=== PATIENT | male | born 1985 | race Caucasian/White ===

== ENCOUNTER 2020-01-20 17:40 | Inpatient (IN) | payer SELFPAY ==
[~2020-01-20] VITALS: Ht 177.8 cm; Wt 75.0 kg
[2020-01-20 18:04] VITALS: BP 156/88; PULSE 122; TEMP 98.7
[2020-01-20 18:24] LABS: BASO % 0.2 % (0.0-2.0); EOS % 0.2 % (0-4.0); GRAN # 9.8 (1.4-6.5); GRAN % 74.3 % (42.2-75.2); HEMATOCRIT 49.6 % (42.0-52.0); HEMOGLOBIN 16.7 g/dl (13.5-18.0); LYMPH # 1.8 (1.2-3.4); LYMPH % 13.5 % (20.0-51.0); MEAN CELL VOLUME 88 fl (80.0-100.0); MEAN CORPUSCULAR HEMOGLOBIN 30 pg (27.0-31.0); MEAN CORPUSCULAR HGB CONC 34 g/dl (33.0-37.0); MEAN PLATELET VOLUME 11.7 fl (7.4-10.4); MONO # 1.5 (0.1-0.6); MONO % 11.6 % (1.7-9.3); PLATELET COUNT 261 K/mm3 (130-400); RED BLOOD COUNT 5.61 M/mm3 (4.20-5.60); REDCELL DISTRIBUTION WIDTH-CV 12.8 % (11.5-14.5)
[2020-01-20 18:33] LABS: ALBUMIN 4.6 gm/dL (3.5-5.0); BILIRUBIN,TOTAL 1.2 mg/dL (0.0-1.0); C-REACTIVE PROTEIN 0.6 mg/dL (0.0-0.9); CALCIUM 9.4 mg/dL (8.4-10.2); CREATININE, serum 1.04 (0.66-1.25); POTASSIUM 3.9 mmol/L (3.4-5.0); TOTAL PROTEIN 7.5 gm/dL (6.4-8.2)
--- NOTE | 2020-01-20 19:24 | NUR ---
Patient arrived to floor via EMS. Patient is alert and oriented, answers questions appropriately. GUS caballero connected to LIS. Patient reports pain is 10/10, administered PRN dilaudid per order, patient reported pain relief initially, then asked for PRN zofran. PRN zofran administred, patient then reports that his pain is 10/10 again and in the past he has had dilaudid with poor results. Patient requests morphine instead, supervisor kosher dietary service RN calling for orders. Patient denies further needs, call light within reach.
--- NOTE | 2020-01-20 19:39 | NUR ---
Patient rating pain 10/10 after adminstration of dilaudid. Patient reports given Morphine at [place] and helped. Spoke with Dr. Roberts. Okay to add order for morphine 2-4 mg Q2 hours PRN. Provided to patient. Will monitor.
[2020-01-20 20:00] VITALS: BP 148/72; PULSE 86; TEMP 97.7
--- NOTE | 2020-01-20 21:15 | NUR ---
Resting in bed. Assessment complete. Lungs clear. Heart sounds normal. Bowels active x4. Pulses present throughout. No edema noted. IV left AC infusing without complications. Reports 10/10 pains. Recently given morphine. Will continue to monitor.
[2020-01-20 22:53] VITALS: BP 157/78; PULSE 88; TEMP 98.8
--- NOTE | 2020-01-20 23:02 | NUR ---
patient reported cannot wait 2 hours between doses of morphine. Patient noted to be shaking in pain. Gave 4mg of morphine and spoke with Dr. Roberts. Per Dr. Roberts will place orders for TREE DOCTOR pump.
--- NOTE | 2020-01-20 23:30 | NUR ---
Patient reports pain has increased after recent dose of morphine. Continously repeating "something is not right." Spoke with Dr. Roberts, obtain CT ABD with contrast. Patient taken to CT.
[2020-01-20 23:50] VITALS: BP 160/89; PULSE 113
--- NOTE | 2020-01-20 23:54 | NUR ---
CAN CRIMPER started at this time.
[2020-01-21] VITALS (8 sets, daily range): BP systolic 136–160; BP diastolic 66–81; PULSE 89–122; TEMP 97.8–99.1
--- NOTE | 2020-01-21 00:48 | NUR ---
Patient reports feeling "good" with WREATH MACHINE OPERATOR pump. Dr Roberts reported no significant changes on CT. Continue to monitor. Patient denies needs. Call light in reach.
--- NOTE | 2020-01-21 02:37 | NUR ---
Resting in bed. Reports relief. VS stable. Will continue to monitor.
--- NOTE | 2020-01-21 04:15 | NUR ---
Resting in bed. Denies needs. Using GENERAL ADMINISTRATOR. Call light in reach.
--- NOTE | 2020-01-21 06:15 | NUR ---
Patient had CT during night. Started on GENERAL MACHINE OPERATOR pump. Patient pain controlled with GENERAL MACHINE OPERATOR pump. Resting in bed this AM. Call light in reach.
[2020-01-21 06:38] LABS: BASO % 0.3 % (0.0-2.0); EOS % 0.3 % (0-4.0); GRAN # 9.1 (1.4-6.5); GRAN % 75.8 % (42.2-75.2); HEMOGLOBIN 15.7 g/dl (13.5-18.0); LYMPH # 1.3 (1.2-3.4); LYMPH % 11.2 % (20.0-51.0); MEAN CELL VOLUME 91 fl (80.0-100.0); MEAN CORPUSCULAR HEMOGLOBIN 30 pg (27.0-31.0); MEAN CORPUSCULAR HGB CONC 33 g/dl (33.0-37.0); MEAN PLATELET VOLUME 11.6 fl (7.4-10.4); MONO # 1.4 (0.1-0.6); PLATELET COUNT 210 K/mm3 (130-400); RED BLOOD COUNT 5.19 M/mm3 (4.20-5.60); REDCELL DISTRIBUTION WIDTH-CV 12.7 % (11.5-14.5)
[2020-01-21 06:50] LABS: ALBUMIN 4.1 gm/dL (3.5-5.0); BILIRUBIN,TOTAL 1.2 mg/dL (0.0-1.0); CALCIUM 9.1 mg/dL (8.4-10.2); CREATININE, serum 1.02 (0.66-1.25); POTASSIUM 3.7 mmol/L (3.4-5.0); TOTAL PROTEIN 6.6 gm/dL (6.4-8.2)
--- NOTE | 2020-01-21 07:04 | NUR ---
Report given to HOSEA Sheikh
--- NOTE | 2020-01-21 08:00 | NUR ---
Patient resting in bed at this time, AUTO COLLISION REPAIR INSTRUCTOR in place per order. Patient reports that pain is currently well controlled, denies current nausea. NG remains to LIS, drainage is brown/green. Patient denies current needs, call light within reach.
--- NOTE | 2020-01-21 09:25 | NUR ---
Initial visit; Patient thanked General Repairer for looking in on him and offering encouragement and God's blessings.
--- NOTE | 2020-01-21 11:56 | NUR ---
Tank Maker Wood met with patient to discuss discharge planning. Patient lives in [place], however was visiting his parents who live in [place]. Patient states he went to [facility] in [place] and they did nothing for him there. Patient then presented to [facility] and he was transferred here. Patient states he has no primary care physician at this time and was not interested in having SW help assist with this. 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 Patient has had primary care in [facility], he just has not set anything up in [place] yet. Patient does not use any DME and is independent with [facility]. Patient is self pay and declined to complete an Financial Assistance Application with [employer]. Patient does not have Advance Directives at this time. Patient is not and has no children. Patient's legal next of kin would be his parents, David (ph#[phone]) and Mary Ellen. Patient states his parents will pick him up at time of discharge. SW will continue to follow.
--- NOTE | 2020-01-21 18:23 | NUR ---
Patient resting in bedside recliner at this time. NG to right nare, currently clamped so patient could ambulate, patient reports that nausea is controlled without suction. PRODUCTION TOOL ENGINEER still in place. Patient denies needs, call light within reach.
--- NOTE | 2020-01-21 19:55 | NUR ---
Resting in bed. Assessment complete. Lungs clear. Heart sounds normal. Bowels hypoactive. Pulses present throughout. No edema noted. IV left AC infusing without complications. BRILLIANDEER LOPPER present. Denies pain. NG tube rehooked to LIS. Patient recently ambulated in hallways. Denies other needs at this time. Call light in reach.
[2020-01-22] VITALS (12 sets, daily range): BP systolic 129–161; BP diastolic 66–89; PULSE 79–100; TEMP 98.6–99
--- NOTE | 2020-01-22 00:23 | NUR ---
Resting in bed. Denies needs. Call light in reach.
--- NOTE | 2020-01-22 02:03 | NUR ---
Resting in bed asleep. Call light in reach.
--- NOTE | 2020-01-22 04:18 | NUR ---
Patient requested NG tube to be clamped for ambulation. Clamped at this time. Denies other needs. Call light in reach.
--- NOTE | 2020-01-22 05:43 | NUR ---
Patient had NG tube to LIS during night. Clamped this AM for ambulation. Otherwise uneventful night. Resting in bed this AM. Call light in reach.
[2020-01-22 06:19] LABS: BASO % 0.4 % (0.0-2.0); EOS # 0.1 (0.0-0.7); EOS % 0.7 % (0-4.0); GRAN # 7.7 (1.4-6.5); GRAN % 75.3 % (42.2-75.2); HEMATOCRIT 44.2 % (42.0-52.0); HEMOGLOBIN 14.7 g/dl (13.5-18.0); MEAN CELL VOLUME 90 fl (80.0-100.0); MEAN CORPUSCULAR HEMOGLOBIN 30 pg (27.0-31.0); MEAN CORPUSCULAR HGB CONC 33 g/dl (33.0-37.0); MEAN PLATELET VOLUME 11.4 fl (7.4-10.4); MONO # 1.4 (0.1-0.6); MONO % 13.3 % (1.7-9.3); PLATELET COUNT 193 K/mm3 (130-400); RED BLOOD COUNT 4.89 M/mm3 (4.20-5.60); REDCELL DISTRIBUTION WIDTH-CV 12.6 % (11.5-14.5)
[2020-01-22 06:31] LABS: INR 1.3 (0.8-3.0); PROTHROMBIN TIME 14.8 SECONDS (9.7-12.8)
[2020-01-22 06:34] LABS: ALBUMIN 4.1 gm/dL (3.5-5.0); BILIRUBIN,TOTAL 2.8 mg/dL (0.0-1.0); CALCIUM 9.2 mg/dL (8.4-10.2); CREATININE, serum 1.03 (0.66-1.25); POTASSIUM 3.6 mmol/L (3.4-5.0); TOTAL PROTEIN 6.8 gm/dL (6.4-8.2)
--- NOTE | 2020-01-22 07:08 | NUR ---
Report given to HOSEA Chi
--- NOTE | 2020-01-22 16:23 | NUR ---
PT RETURNED TO ROOM AT 1615, DENIES PAIN, POST-OP VS SET UP AND PT MADE COMFORTABLE.
--- NOTE | 2020-01-22 19:26 | NUR ---
PT TOLERATING DINNER WELL. TRANSFERS FINE TO THE TOILET AFER SURGERY. PAIN UNDER CONTROL, LR RUNNING AT 100 MLS IN LEFT AC.
--- NOTE | 2020-01-22 21:30 | NUR ---
Pt. sitting up in bed at this time. Time. Pt. is A&OX3, assessment complete. IV to lt. ac patent, IV fluids infusing per orders. Abd. lap sites x3, well approximated. Pt. reports being able to tolerate clear liquids. Pt. denies pain or other needs, call light within reach.
[2020-01-23 00:09] VITALS: BP 155/71; PULSE 83; TEMP 98.8
[2020-01-23 04:08] VITALS: BP 139/87; PULSE 82; TEMP 98.5
[2020-01-23 06:55] LABS: BASO % 0.3 % (0.0-2.0); GRAN # 8.6 (1.4-6.5); GRAN % 79.7 % (42.2-75.2); HEMATOCRIT 45.6 % (42.0-52.0); HEMOGLOBIN 15.1 g/dl (13.5-18.0); LYMPH # 0.8 (1.2-3.4); LYMPH % 7.7 % (20.0-51.0); MEAN CELL VOLUME 90 fl (80.0-100.0); MEAN CORPUSCULAR HEMOGLOBIN 30 pg (27.0-31.0); MEAN CORPUSCULAR HGB CONC 33 g/dl (33.0-37.0); MEAN PLATELET VOLUME 11.2 fl (7.4-10.4); MONO # 1.3 (0.1-0.6); PLATELET COUNT 249 K/mm3 (130-400); RED BLOOD COUNT 5.05 M/mm3 (4.20-5.60); REDCELL DISTRIBUTION WIDTH-CV 12.2 % (11.5-14.5)
[2020-01-23 07:50] LABS: ALBUMIN 4.5 gm/dL (3.5-5.0); BILIRUBIN,TOTAL 1.3 mg/dL (0.0-1.0); CALCIUM 9.5 mg/dL (8.4-10.2); CREATININE, serum 1.08 (0.66-1.25); POTASSIUM 3.5 mmol/L (3.4-5.0); TOTAL PROTEIN 7.5 gm/dL (6.4-8.2)
[2020-01-23 07:59] VITALS: BP 135/68; PULSE 83; TEMP 98.9
--- NOTE | 2020-01-23 08:40 | NUR ---
PT INDEPENDENT IN ROOM. TOLERATING FULL LIQUIDS, BOWEL SOUNDS ACTIVE, PT REPORTS PASSING COLLEEN, NG TUBE DISCONTINUED,
[2020-01-23] MEDS ORDERED: MOTRIN 600600 MG/TAB PO (08:42)
[2020-01-23] MEDS ORDERED: ROXICODONE 55 MG/TAB PO (08:45)
[2020-01-23] MEDS ORDERED: NEURONTIN100 MG/CAP PO (08:45)
--- NOTE | 2020-01-23 10:30 | NUR ---
DISCHARGE INSTRUCTIONS REVIEWED WITH PT. QUESTIONS SOLICITED AND ANSWERED. PT TAKEN OUT BY WHEEL CHAIR AND STAFF.
--- NOTE | 2020-01-23 11:07 | NUR ---
Outside Residential Sales Professional met with patient as he will discharge home today. Patient states Dr. Roberts recommended he stay with his parents for a short time while he recovers. Patient states his mom will be here in ten minutes and plans to stay with them for a short while. Patient denies any questions or concerns at this time.
== END 2020-01-23 10:31 | disposition home or self-care (01) | DRG 337 ==
LOC: JCC 17:40
PROVIDERS: ADMIT Surgery
PROC: 0FN14ZZ Release Right Lobe Liver, Percutaneous Endoscopic Approach (ICD-10-PCS; 2020-01-22)
PROC: 0JN83ZZ Release Abdomen Subcutaneous Tissue and Fascia, Percutaneous Approach (ICD-10-PCS; 2020-01-22)
PROC: 0DNA4ZZ Release Jejunum, Percutaneous Endoscopic Approach (ICD-10-PCS; principal; 2020-01-22 13:00)
DX: K56.50 Intestinal adhesions [bands], unspecified as to partial versus complete obstruction (principal); E80.7 Disorder of bilirubin metabolism, unspecified; Z20.828 Contact with and (suspected) exposure to other viral communicable diseases
CPT/HCPCS: A9284; J0690; J1100; J1170; J1885; J2270; J2405; J2704; J3010; J3475; J7120; Q9967